=== PATIENT | male | born 1985 | race Caucasian/White ===

== ENCOUNTER 2022-05-25 13:41 | Observation (INO) ==
[2022-05-25] MEDS ORDERED: Naloxone 0.4 MG/ML INJ IVP PRN (15:32)
[2022-05-25] MEDS ORDERED: cloNIDine HCL 0.1 MG TABLET PO PRN (15:35)
[2022-05-26 05:42] LABS: Hemoglobin 14.4 g/dL (12.9-16.9); Mean Corpuscular Hemoglobin 27.5 pg (28.0-33.3)
[2022-05-26 05:44] LABS: Basophils % 0.3 %; Eosinophils # 0.1 K/mcL (0.0-0.6); Eosinophils % 0.6 %; Hematocrit 42.9 % (37.5-50.1); Immature Granulocytes % 2.2 % (0-4); Lymphocytes # 3.8 K/mcL (0.6-4.6); Lymphocytes % 32.6 %; Mean Corpuscular HGB Conc 33.6 g/dL (31.6-35.5); Mean Platelet Volume 10.7 fL (9.4-12.4); Monocytes # 1.2 K/mcL (0.0-1.3); Monocytes % 10.4 %; Platelet Count 249 K/mcL (140-400); Red Blood Count 5.23 M/mcL (4.19-5.50); Red Cell Distribution Width 14.5 % (11.5-14.5); Segmented Neutrophils % 53.9 %; White Blood Count 11.6 K/mcL (4.3-11.1)
[2022-05-26 05:50] LABS: BUN/Creatinine Ratio 23 (6-26); Blood Urea Nitrogen 25 mg/dL (6-20); Calcium 9.1 mg/dL (8.6-10.3); Carbon Dioxide 18 mEq/L (23-29); Chloride 109 mEq/L (98-107); Glucose 96 mg/dL (70-105); Osmolality,Calculated 286 (280-300); Potassium 4.6 mEq/L (3.5-5.1); Sodium 136 mEq/L (136-145)
[2022-05-26 06:04] LABS: Neutrophils # 6.3 K/mcL (1.6-8.9); Platelet Estimate Normal (Normal)
[2022-05-26 06:37] VITALS: BP 132/80; PULSE 88; TEMP 98; O2SAT 97
[2022-05-26] MEDS ORDERED: Sodium Bicarbonate 75 MEQ in 0.45 % Sodium Chloride 1,000 ML IVC SCH (08:15)
[2022-05-26] MEDS ORDERED: Nicotine 21 MG PATCH.TD24 TD SCH (09:00)
== END 2022-05-26 10:05 | disposition home or self-care (01) ==
LOC: 3BNU → SUATTDRO 14:58
PROVIDERS: ADMIT Internal Medicine; ATTEND Internal Medicine